=== PATIENT | male | born 1975 | race Caucasian/White ===

== ENCOUNTER 2020-09-24 11:43 | Inpatient (IN) | payer BC ==
[2020-09-24] MEDS ORDERED: Senokot S 8.6-50 MG TAB PO PRN (13:30)
[2020-09-24 14:00] VITALS: BMI 86.5
[2020-09-24] MEDS: Heparin 5,000 UNITS/ML VIAL SC SCH ×2 (14:34→21:43)
--- NOTE | 2020-09-24 16:10 | HP ---
PRIMARY CARE PHYSICIAN: Dr. Bernal and Sommer Davalos NP CHIEF COMPLAINT: Lower leg edema, shortness of breath. HISTORY OF PRESENT ILLNESS: Mr. Don is a 44-year-old male, who went to the emergency room over in [place] today for some dyspnea on exertion with bilateral leg swelling. He reports that he has had a little dyspnea on exertion for the last couple of days. Denies any cough, but does report that he woke up this morning with the bilateral leg edema that was significant enough that it was concerning to him, so he came to the emergency room. He reports that within the last of couple weeks, he went to the dentist for some dental work and they refused to do the dental work because his blood pressure was so high. He went to a new PCP who changed up his medications, added lisinopril, Bystolic, and clonidine and took him off his losartan. He reports he has a followup appointment with his PCP this week to discuss the lab work that they did in [place], but we do not have in our system here. His blood pressure in the emergency room when he first arrived in [place] was 177/115, pulse was 79, respiratory rate was 26, but he had an O2 saturation at 98 on room air. His EKG over there was normal sinus rhythm, beats per minute 78, conduction normal, has some ST depression in leads I. He did have some left atrial enlargement. Chest x-ray showed no focal pulmonary infiltrates and the heart is upper normal size. Labs; BUN is 22, creatinine is 1.48, estimated GFR is 52, AST is 100, ALT is 301, alkaline phosphatase is 133. Troponin in the indeterminate range of 0.036. BNP is 1345.8. He was sent over to [facility] for admission for possible CHF. REVIEW OF SYSTEMS: The patient reports some shortness of breath on exertion. Reports lower leg edema, which appeared this morning when he got up. He denied fever, chills, cough, chest pain. All systems reviewed and are negative unless mentioned above or in HPI. PAST MEDICAL HISTORY: Hypertension. SURGICAL HISTORY: He has had back surgery in the past for herniated disk and bilateral hernia repair. SOCIAL HISTORY: He is a social drinker, former marijuana user, and does smoke tobacco. Smokes about a pack a day. ALLERGIES: NONE. CURRENT MEDICATIONS: 1. Bystolic 20 mg p.o. once a day. 2. Lisinopril 20 mg p.o. once a day. 3. Clonidine 0.1 tablet q.6 hours p.r.n. for systolic over 180. PHYSICAL EXAMINATION: VITAL SIGNS: Temp is 98, pulse is 76, respiratory rate is 19, pO2 sats are 95% on room air, blood pressure is 130/64. CONSTITUTIONAL: The patient is alert and oriented to person, place, and time. He is nontoxic appearing. HEENT: Head is atraumatic and normocephalic. Eyes, pupils are equally round and reactive to light. ENT; mouth exam is normal. Mucous membranes are moist. NECK: Normal range of motion. Trachea is midline. RESPIRATORY/CHEST: Breath sounds are clear. Chest expansion is equal. CARDIOVASCULAR: Regular rate and rhythm. Heart sounds are normal. ABDOMEN: Nontender. Bowel sounds are heard. BACK: Normal to inspection. There is no tenderness. EXTREMITIES: Upper extremity; normal range of motion. Motor strength is normal. Radial pulses are present. Lower extremity; normal range of motion. Motor strength is normal. He has pitting edema bilaterally. NEURO: The patient is oriented to person, place, and time. There is no focal motor or sensory deficits. SKIN: Warm, dry, normal in color. PSYCH: He has a normal affect. ASSESSMENT: 1. Dyspnea on exertion with lower leg edema. We will order an echocardiogram, gently diurese. The patient was given 40 of Lasix in the emergency room. We will continue this daily. We will trend troponins. 2. Acute renal injury. Hold nephrotoxic medications and repeat labs in AM 3. History of hypertension. Change his medications to Coreg 6.25 mg p.o. b.i.d. 4. DM Type 2- ACHS accuchecks, sliding scale insulin for coverage; add A1C 5. History of sleep apnea. Order a CPAP for use at night. 6. Repeat lab values in the morning. 7. Deep vein thrombosis and gastrointestinal prophylaxis started. 8 Hospital course dependent on clinical findings. [address] Agustin who agrees with plan Job ID: [id number] [facility]
[2020-09-24 16:25] LABS: Troponin I 0.036 ng/mL (< 0.028)
[2020-09-24] MEDS: Carvedilol 6.25 MG TAB PO SCH (16:50)
[2020-09-24 19:14] LABS: Troponin I 0.034 ng/mL (< 0.028)
[2020-09-24] MEDS: Famotidine 20 MG TAB PO SCH (21:44)
[2020-09-25] MEDS ORDERED: Amlodipine 5 MG TAB PO PRN (04:12)
[2020-09-25] MEDS: Acetaminophen 325 MG TAB PO PRN (04:32)
[2020-09-25] MEDS: Carvedilol 6.25 MG TAB PO SCH ×2 (04:32→16:15)
[2020-09-25 04:46] LABS: #Basophils 0.1 thou/uL (0.0-0.2); #Eosinphils 0.3 thou/uL (0.0-0.7); #Lymphocytes 2.4 thou/uL (1.20-3.40); #Monocytes 0.8 thou/uL (0.11-0.59); #Neutrophils 6.6 thou/uL (1.40-6.50); %Basophils 0.6 % (0.0-1.0); %Eosinophils 2.8 % (0.0-10.0); %Lymphocytes 23.4 % (21.0-51.0); %Monocytes 8.1 % (0.0-10.0); Hemoglobin 12.7 g/dL (14.0-18.0); Mean Corpuscular HGB CONC 32.6 g/dL (32.0-36.0); Mean Corpuscular Hemoglobin 28.3 pg (27.0-31.0); Mean Corpuscular Volume 86.8 fL (78.0-98.0); Mean Platelet Volume 8.3 fL (7.4-10.4); Platelet Count 281 thou/uL (130-400); RBC Distribution Width 14.8 % (11.5-14.5); Red Blood Cell (RBC) Count 4.51 mill/uL (4.70-6.10); White Blood Cell (WBC) Count 10.2 thou/uL (4.8-10.8)
[2020-09-25 04:58] LABS: Hemoglobin A1c 5.8 % (4.0-6.0)
[2020-09-25 05:07] LABS: ALT (SGPT) 215 U/L (8-55); AST (SGOT) 47 U/L (5-34); Albumin 3.5 g/dL (3.5-5.0); Alkaline Phosphatase 117 U/L (40-110); Anion Gap 13 mmol/L (10-20); BUN (Urea Nitrogen) 23 mg/dL (8.9-20.6); Bilirubin, Total 0.8 mg/dL (0.2-1.2); Calc. Creatinine Clearance 131 mL/min (70-130); Calcium 8.9 mg/dL (7.8-10.44); Carbon Dioxide 27 mmol/L (22-29); Cardiac Risk 4.8 (Less than 4.5); Chloride 105 mmol/L (98-107); Cholesterol 152 mg/dl (< 200 Desired); Estimated GFR-MDRD 54; Globulin 2.7 g/dL (2.4-3.5); Glucose 109 mg/dL (70-105); HDL Cholesterol 32 mg/dL (>60 Neg Risk); LDL Cholesterol, Calculated 100 mg/dL; Potassium 3.8 mmol/L (3.5-5.1); Protein, Total 6.2 g/dL (6.0-8.3); Sodium 141 mmol/L (136-145); Triglycerides 100 mg/dL (Less than 150)
[2020-09-25 05:33] LABS: SARS-CoV-2 MS2 Positive; SARS-CoV-2 N Gene Negative; SARS-CoV-2 S Gene Negative; SARS-CoV-2 by NAA Not Detected (NotDetected); SARS-CoV-2 orf1ab Negative
[2020-09-25] MEDS ORDERED: FLU VACC QS2020-21(6MOS UP)/PF 60 MCG/0.5 ML SYRINGE IM ONE (09:00)
[2020-09-25] MEDS: Heparin 5,000 UNITS/ML VIAL SC SCH ×3 (09:26→20:16)
[2020-09-25] MEDS: Furosemide 40 MG/4 ML VIAL SLOW IVP SCH (09:26)
[2020-09-25] MEDS: Aspirin Chewable 81 MG TAB PO SCH (09:26)
[2020-09-25] MEDS: Famotidine 20 MG TAB PO SCH ×2 (09:26→20:15)
--- NOTE | 2020-09-25 12:19 | PDOC.HOSPP ---
- Subjective Encounter Date: 09/25/20 Encounter Time: 09:30 Subjective: Patient is seen for follow-up for possible new onset congestive heart failure and lower extremity edema. Patient states he is feeling well although his legs are still edematous. Currently awaiting cardiology consult. - Objective Vital Signs & Weight: Vital Signs (12 hours) Temp Pulse Resp BP Pulse Ox 09/25/20 11:32 97.6 F 76 16 173/112 H 98 09/25/20 07:36 98.5 F 76 18 160/87 H 95 09/25/20 06:06 98.6 F 75 165/112 H 09/25/20 04:32 99.1 F 09/25/20 04:00 99.1 F 81 18 204/117 H 96 Weight Weight 306 lb I&O: 09/24/20 09/25/20 09/26/20 06:59 06:59 06:59 Intake Total 1300 Output Total 2250 Balance -950 Result Diagrams: 09/25/20 04:31 09/25/20 04:31 Hospitalist ROS - Medication Medications: Active Medications Generic Name Dose Route Start Last Admin Trade Name Freq PRN Reason Stop Dose Admin Acetaminophen 650 mg 09/25/20 04:12 09/25/20 04:32 Acetaminophen 325 Mg Tab PO 650 mg Q6H PRN Administration Fever/Mild Pain 1-3 Aspirin 81 mg 09/25/20 09:00 09/25/20 09:26 Aspirin Chewable 81 Mg Tab PO 81 mg DAILY TREVON Administration Carvedilol 6.25 mg 09/24/20 17:00 09/25/20 04:32 Carvedilol 6.25 Mg Tab PO 6.25 mg BID- TREVON Administration Famotidine 20 mg 09/24/20 21:00 09/25/20 09:26 Famotidine 20 Mg Tab PO 20 mg BID TREVON Administration Furosemide 40 mg 09/25/20 09:00 09/25/20 09:26 Furosemide 40 Mg/4 Ml Vial SLOW IVP 40 mg DAILY TREVON Administration Heparin Sodium (Porcine) 5,000 units 09/24/20 15:00 09/25/20 09:26 Heparin 5,000 Units/Ml Vial SC 5,000 units TID TREVON Administration Sodium Chloride 10 ml 09/24/20 13:30 09/25/20 09:27 Flush - Normal Saline 10 Ml Syringe IVF 10 ml PRN PRN Administration Saline Flush - Exam General Appearance: NAD, awake alert Eye: PERRL, anicteric sclera ENT: normocephalic atraumatic Neck: supple Heart: RRR, no murmur, no gallops, no rubs, normal peripheral pulses Respiratory: CTAB, no wheezes, no rales, no ronchi, normal chest expansion Gastrointestinal: soft, non-tender, non-distended, normal bowel sounds, no palpable masses Extremities: 2+ LE edema Psychiatric: normal affect, normal behavior Hosp A/P (1) Dyspnea on exertion Code(s): R06.00 - DYSPNEA, UNSPECIFIED Status: Acute (2) Lower extremity edema Code(s): R60.0 - LOCALIZED EDEMA Status: Acute (3) TRAMAINE (acute kidney injury) Code(s): N17.9 - ACUTE KIDNEY FAILURE, UNSPECIFIED Status: Acute (4) HTN (hypertension) Code(s): I10 - ESSENTIAL (PRIMARY) HYPERTENSION Status: Chronic - Plan #Dyspnea on exertion with lower leg edema: Possible new congestive heart failure Awaiting echo results, was obtained this a.m. Awaiting cardiology consult Continue diuresis #Acute renal injury Very slight improvement from yesterday Continue avoiding nephrotoxic medications Repeat labs in a.m. #Hypertension Monitor vital signs every 4 hour Monitor on telemetry Blood pressure 160/87 this a.m., awaiting morning medications Patient care discussed with Dr. Agustin
[2020-09-25] MEDS ORDERED: hydrALAZINE 20 MG/ML VIAL SLOW IVP PRN (12:59)
[2020-09-25] MEDS ORDERED: Lisinopril 20 MG TAB PO SCH (13:15)
--- NOTE | 2020-09-25 14:35 | PDOC.EVN ---
Event Note - Event Note Event Note: Patient case was reviewed. Patient was seen and examined. He reports he has been voiding very well. He is breathing much better. He still has persistent edema of his lower extremities. He tells me that he has been fighting blood pressure for about 4 years. He has not seen his primary care provider in a good while. He also has been on sleep apnea treatment for the past year. He feels like it is not working. He is still very symptomatic. His blood pressure continues to run extremely high much of the time. His heart is regular without murmurs. Lungs are clear bilaterally. Extremities have persistent 3+ pitting edema. monitor technician reveals several 3-second pauses between 5 and 7 AM. He has some sinus bradycardia with a heart rate in the 30s and some ventricular escape beats. I had a long discussion regarding concern for heart failure. He has an elevated BNP with dyspnea on exertion and peripheral edema. He does not have significant cardiomegaly on chest x-ray nor did he have significant pulmonary edema. Given his fairly severe obstructive sleep apnea it is concerning that this is not being adequately treated resulting in some pulmonary hypertension or right heart failure. He is responding well to diuretics and symptomatically improving. Trying to address his blood pressure with the Coreg. May need to be judicious in that given the episodes of bradycardia and pauses. Will defer that to cardiology. Also adding back his SILVIA inhibitor. His renal function is stable with a GFR in the low 50s. Suspect that is chronic from longstanding poorly treated hypertension. This point he likely needs it for blood pressure control and afterload reduction. I believe it is safe with his current GFR. I have also added some IV hydralazine as needed for significantly elevated blood pressures. Echo results and cardiology consult pending. Patient was strongly encouraged to follow-up as an outpatient with his PCP in order to address the sleep apnea situation more fully and successfully.
[2020-09-25] MEDS: hydrALAZINE 25 MG TAB PO SCH (20:15)
--- NOTE | 2020-09-25 22:51 | CON ---
DATE OF CONSULTATION: HISTORY OF PRESENT ILLNESS: Jordan Don is a 44-year-old white male with previous history of hypertension. He has began to notice leg swelling as well as exertional shortness of breath and also exertional chest pressure. This would resolve in less than 1 minute with rest. He was previously on losartan, but saw a new primary care doctor, who placed him on high dose Bystolic 20 mg, lisinopril, and clonidine. With these symptoms, he went to the emergency room in [place] and then is transferred here for further evaluation. He states that since diuresis, his breathing has improved. PAST MEDICAL HISTORY: Hypertension. He denies history of diabetes or hypercholesterolemia. He does have obstructive sleep apnea and uses CPAP at home. OPERATIONS: Back surgery for herniated disk and bilateral hernia repair. SOCIAL HISTORY: He smokes 1 pack per day. He occasionally drinks. FAMILY HISTORY: Negative for coronary artery disease. MEDICATIONS: 1. Bystolic 20 mg daily. 2. Clonidine 0.1 mg q.6 hours p.r.n. 3. Lisinopril 20 mg daily. 4. Aspirin 81 daily. ALLERGIES: PENICILLIN. REVIEW OF SYSTEMS: 10-point review of systems is otherwise unremarkable. PHYSICAL EXAMINATION: VITAL SIGNS: Blood pressure 136/108, pulse of 76. HEENT: PERRL. NECK: Supple. CHEST: Clear. CARDIAC: S1 and S2 normal without any S3, S4, or murmurs. Carotid upstrokes normal without bruits. ABDOMEN: Normal bowel sounds without tenderness or organomegaly. EXTREMITIES: Revealed no clubbing or cyanosis. There is 2+ pretibial edema. NEUROLOGIC: Grossly intact. SKIN: Warm and dry. LABORATORY DATA: EKG revealed normal sinus rhythm with left atrial enlargement, T-wave inversion in aVL and lead I. Echocardiogram revealed mild left ventricular enlargement, moderate concentric left ventricular hypertrophy, moderate left ventricular dysfunction with ejection fraction of 30% to 35%, mild left atrial enlargement, moderate mitral regurgitation, mild tricuspid regurgitation, and moderate pulmonic insufficiency. Chest x-ray revealed no acute findings. Hemoglobin 12.7, hematocrit 39.1, white count 10,200, platelets 281,000. Sodium 141, potassium 3.8, chloride 105, carbon dioxide 27, BUN 23, creatinine 1.44, glucose 109. Hemoglobin A1c 5.8. AST 47, ALT 215, troponin I up to 0.036. Cholesterol 152, triglycerides 100, HDL 32, LDL 100. TSH is normal. CK-MB 3.4. BNP 1345.8. IMPRESSION: 1. 3-second pause, probably related to being on high dose Bystolic as well as receiving a dose of carvedilol last night and not using CPAP. 2. Moderate cardiomyopathy with ejection fraction of 30% to 35%. 3. Left ventricular hypertrophy. 4. Exertional chest pressure and very mildly elevated troponin I. 5. Hypertension, poorly controlled. 6. LDL of 100. 7. Smoker. 8. Chronic kidney disease. 9. Elevated liver function tests, probably due to hepatic congestion. PLAN: The situation was discussed with the patient and his . He will continue to be diuresed. His liver function and renal function will continue to be monitored closely. With his renal insufficiency, lisinopril will be discontinued, also in the hopes of eventually transitioning to Entresto. CPAP will be arranged so that we can reassess his heart rate during the night with CPAP on. With his left ventricular dysfunction and exertional chest pressure, consideration should be given to cardiac catheterization once his renal function is improved and his volume status is better. Risks of this were discussed with the patient and his , including , myocardial infarction, dye reaction, vascular injury, CVA, transfusion, limb loss, renal loss, etc. Also risk of intervention with PTCA and stent placement was discussed including , myocardial infarction, emergent CABG, restenosis, stent thrombosis, vessel perforation, etc. He understands. He is somewhat hesitant to remain in the hospital with the evaluations that need to be done with his cardiac, liver, and renal problems. Job ID: [id number] [facility] HOSPITALFerny
[2020-09-26 04:59] LABS: #Basophils 0.1 thou/uL (0.0-0.2); #Eosinphils 0.2 thou/uL (0.0-0.7); #Lymphocytes 2.2 thou/uL (1.20-3.40); #Monocytes 0.8 thou/uL (0.11-0.59); #Neutrophils 6.3 thou/uL (1.40-6.50); %Eosinophils 1.6 % (0.0-10.0); %Lymphocytes 23.6 % (21.0-51.0); %Monocytes 8.1 % (0.0-10.0); %Neutrophils 65.7 % (42.0-75.0); Hemoglobin 12.2 g/dL (14.0-18.0); Mean Corpuscular Volume 87.1 fL (78.0-98.0); Mean Platelet Volume 8.5 fL (7.4-10.4); Platelet Count 291 thou/uL (130-400); RBC Distribution Width 14.6 % (11.5-14.5); White Blood Cell (WBC) Count 9.5 thou/uL (4.8-10.8)
[2020-09-26 05:25] LABS: ALT (SGPT) 147 U/L (8-55); AST (SGOT) 26 U/L (5-34); Albumin 3.4 g/dL (3.5-5.0); Alkaline Phosphatase 113 U/L (40-110); Anion Gap 11 mmol/L (10-20); BUN (Urea Nitrogen) 24 mg/dL (8.9-20.6); Bilirubin, Total 0.5 mg/dL (0.2-1.2); Calc. Creatinine Clearance 122 mL/min (70-130); Calcium 9.2 mg/dL (7.8-10.44); Carbon Dioxide 30 mmol/L (22-29); Chloride 105 mmol/L (98-107); Estimated GFR-MDRD 52; Globulin 2.8 g/dL (2.4-3.5); Glucose 109 mg/dL (70-105); Protein, Total 6.2 g/dL (6.0-8.3); Sodium 142 mmol/L (136-145)
[2020-09-26] MEDS: Carvedilol 6.25 MG TAB PO SCH ×2 (08:44→16:45)
[2020-09-26] MEDS: Famotidine 20 MG TAB PO SCH ×2 (08:44→21:12)
[2020-09-26] MEDS: hydrALAZINE 25 MG TAB PO SCH ×3 (08:45→21:12)
[2020-09-26] MEDS: Aspirin Chewable 81 MG TAB PO SCH (08:46)
[2020-09-26] MEDS: Heparin 5,000 UNITS/ML VIAL SC SCH ×3 (08:46→21:12)
[2020-09-26] MEDS: Furosemide 40 MG/4 ML VIAL SLOW IVP SCH (08:46)
[2020-09-26] MEDS ORDERED: Lisinopril 20 MG TAB PO SCH (09:00)
[2020-09-26] MEDS ORDERED: Carvedilol 6.25 MG TAB PO SCH (09:15)
[2020-09-26] MEDS ORDERED: Communication Order-Pharmacy FS SCH (09:30)
[2020-09-26] MEDS ORDERED: Acetylcysteine 20% 200 MG/ML 30 ML VIAL PO SCH (13:00)
[2020-09-26] MEDS ORDERED: Furosemide 40 MG/4 ML VIAL SLOW IVP SCH (14:00)
--- NOTE | 2020-09-26 17:06 | CON ---
DATE OF CONSULTATION: 09/26/2020 SERVICE: Nephrology. REASON FOR CONSULTATION: Renal insufficiency and need for contrast study. REQUESTING PHYSICIAN: Dr. Lincoln Keith. CHIEF COMPLAINT: Worsening shortness of breath and edema. HISTORY OF PRESENT ILLNESS: A 44-year-old male patient with known history of hypertension, admitted due to worsening shortness of breath and lower extremity edema. The patient with known history of hypertension, reportedly noticed that his blood pressures have been out of control, hence medications were recently adjusted by primary care physician. The patient reported that he used to take clonidine p.r.n., but of late, has been taking up to five times in a day. He reported acute bilateral leg edema associated with shortness of breath overnight, hence presentation to [place], from where he was transferred over here. The patient was started on diuretics and antihypertensives with improvement of both blood pressure and shortness of breath as well as leg swelling. Cardiology has seen the patient, and subsequent echocardiogram showed reduced EF of 30% to 35%, hence need for cardiac catheterization. Nephrology consult was requested for recommendation in view of need for cardiac catheterization in a patient with CKD. There is no history of hematuria, nausea, vomiting, hematemesis, dysuria, or hematochezia. The patient reports that shortness of breath has improved significantly and is currently on room air. He denied prior history of chronic kidney disease or use of NSAIDs. PAST MEDICAL HISTORY: 1. Hypertension. 2. Obesity. 3. Obstructive sleep apnea, on CPAP. PAST SURGICAL HISTORY: Back surgery for herniated disk. FAMILY HISTORY: No history of coronary artery disease or stroke in family members. SOCIAL HISTORY: The patient is a current everyday smoker. Smokes about one pack per day. He occasionally drinks alcohol. He lives with his at home. ALLERGIES: PENICILLIN. PRIOR TO HOSPITAL MEDICATIONS: 1. Bystolic 20 mg daily. 2. Lisinopril 20 mg daily. 3. Aspirin 81 mg p.o. daily. 4. Clonidine 0.1 mg q.6 hours p.r.n. for elevated blood pressure. CURRENT HOSPITAL MEDICATIONS: As follows; 1. Aspirin 81 mg p.o. daily. 2. Carvedilol 6.25 mg p.o. b.i.d. 3. Pepcid 20 mg p.o. b.i.d. 4. Lasix 40 mg IV at 6 a.m. bid. 5. Heparin 5000 units subcutaneously t.i.d. 6. Hydralazine 75 mg p.o. b.i.d. REVIEW OF SYSTEMS: A 12-point review of systems performed was negative other than pertinent positives and negatives included in the history of present illness. PHYSICAL EXAMINATION: VITAL SIGNS: Temperature 98.4, pulse 78, respiratory rate 17, SpO2 of 96% on room air, and blood pressure is 142/76. Intake and output in the last 24 hours showed total intake of 100 with output of 800: This is grossly inconclusive. GENERAL: Obese, heavily-built male, in no obvious distress. Afebrile. Anicteric. Acyanotic. HEENT: Normocephalic, atraumatic. Oral mucosa is moist. NECK: Supple with no obvious JVD. CARDIOVASCULAR: Regular rhythm and rate with normal heart sounds 1 and 2. RESPIRATORY: Good air entry bilaterally with few bibasilar crackles. No obvious rhonchi or use of accessory muscles appreciated. GI: Obese, soft, nontender, nondistended with normal bowel sounds. EXTREMITIES: [id number] bilateral leg edema noted. No erythema appreciated. MAGENTO DEVELOPER: Conscious, alert, oriented x3 with appropriate mental status. Cranial nerves 2 through 12 are grossly intact. The patient moves all extremities. DIAGNOSTIC DATA: CBC today showed WBC count of 9.5, hemoglobin of 12.2, MCV of 87.1, and platelets of 291. Chemistry today showed sodium 142, potassium 4.0, chloride 105, CO2 of 30, BUN 24, creatinine 1.49, glucose 109, calcium 9.2, total bilirubin 0.5, AST 26, ALT 147, alkaline phosphatase 113, total protein 6.2, albumin 3.4. Of note, on presentation, BUN was 22, and creatinine was 1.48. Echocardiogram performed on September 25 showed moderately increased left ventricular size with moderate concentric left ventricular hypertrophy. Left ventricular systolic function is moderately decreased with EF of 30% to 35%. Also noted were mild dilatation of left atrium as well as moderate mitral regurgitation, mild tricuspid regurgitation, and moderate pulmonic regurgitation. ASSESSMENT: 1. Renal insufficiency: It most likely is chronic kidney disease, stage 3. Acute reversible component cannot be ruled out. The patient has known history of longstanding poorly controlled hypertension and has been on RAAS chioma. He admitted to noncompliance with medication. 2. Poorly controlled hypertension. 3. Hypertensive heart disease. 4. Obstructive sleep apnea, on CPAP. 5. Acute on chronic systolic and diastolic heart failure with EF of 30% to 35%. PLAN: In view of planned cardiac catheterization tomorrow, we will hold diuretics given that the patient is not in respiratory distress, has clear lungs and is on room air. We will also start the patient on Mucomyst. I agree with commencement of IV fluid tomorrow morning prior to cardiac catheterization. We will avoid nephrotoxic agents at this point, including RAAS blockers, and diuretics. Many thanks for involving us in the care of this patient. We will follow along with you. Further treatment to follow depending on hospital course and review of other diagnostic tests. Job ID: [id number] [facility]
--- NOTE | 2020-09-26 17:38 | PDOC.HOSPP ---
- Subjective Encounter Date: 09/26/20 Encounter Time: 10:30 Subjective: Patient seen for follow-up regarding congestive heart failure exacerbation. Reports feeling better. Denies chest pain. - Objective Vital Signs & Weight: Vital Signs (12 hours) Temp Pulse Resp BP BP Pulse Ox 09/26/20 16:43 83 174/103 H 09/26/20 12:15 98.4 F 78 17 142/76 H 96 09/26/20 10:43 131/63 09/26/20 08:45 81 179/113 H 09/26/20 07:15 98.6 F 83 16 140/101 H 98 09/26/20 06:35 89 211/117 H Weight Weight 294 lb I&O: 09/25/20 09/26/20 09/27/20 06:59 06:59 06:59 Intake Total 1300 100 Output Total 2250 800 Balance -950 -700 Result Diagrams: 09/26/20 04:20 09/26/20 04:20 Additional Labs: Labs and MAR reviewed by me EKG Reviewed by me: Yes (Telemetry shows normal sinus rhythm) Hospitalist ROS - Review of Systems Constitutional: denies: fever, chills, sweats, weakness, malaise Respiratory: reports: SOB with excertion. denies: cough, dry, shortness of breath, hemoptysis, pleuritic pain, sputum, wheezing Cardiovascular: reports: orthopnea, edema. denies: chest pain, palpitations, paroxysmal noc. dyspnea, light headedness Gastrointestinal: denies: nausea, vomiting, abdominal pain, diarrhea, constipation, melena, hematochezia Genitourinary: denies: dysuria, frequency, incontinence, hematuria, retention Skin: denies: rash, lesions, tiffany, bruising - Medication Medications: Active Medications Generic Name Dose Route Start Last Admin Trade Name Freq PRN Reason Stop Dose Admin Acetaminophen 650 mg 09/25/20 04:12 09/25/20 04:32 Acetaminophen 325 Mg Tab PO 650 mg Q6H PRN Administration Fever/Mild Pain 1-3 Amlodipine Besylate 2.5 mg 09/25/20 04:12 09/26/20 05:05 Amlodipine 5 Mg Tab PO 10/25/20 04:13 2.5 mg ONE PRN Administration SBP Greater Than 180 Aspirin 81 mg 09/25/20 09:00 09/26/20 08:46 Aspirin Chewable 81 Mg Tab PO 81 mg DAILY TREVON Administration Carvedilol 12.5 mg 09/26/20 17:00 09/26/20 16:45 Carvedilol 6.25 Mg Tab PO 12.5 mg BID-WM TREVON Administration Famotidine 20 mg 09/24/20 21:00 09/26/20 08:44 Famotidine 20 Mg Tab PO 20 mg BID TREVON Administration Heparin Sodium (Porcine) 5,000 units 09/24/20 15:00 09/26/20 16:44 Heparin 5,000 Units/Ml Vial SC 5,000 units TID TREVON Administration Hydralazine HCl 10 mg 09/25/20 12:59 09/26/20 07:16 Hydralazine 20 Mg/Ml Vial SLOW IVP 10 mg Q4H PRN Administration SBP > 185, DBP > 100 Hydralazine HCl 100 mg 09/26/20 15:00 09/26/20 16:43 Hydralazine 25 Mg Tab PO 100 mg TID TREVON Administration Sodium Chloride 10 ml 09/24/20 13:30 09/26/20 08:47 Flush - Normal Saline 10 Ml Syringe IVF 10 ml PRN PRN Administration Saline Flush - Exam General - other findings: Obese Eye: anicteric sclera ENT: no oropharyngeal lesions, moist mucosa Neck: supple, symmetric, no thyromegaly, no lymphadenopathy Heart: RRR, no gallops, no rubs, normal peripheral pulses Respiratory: no rales, no ronchi, normal chest expansion Respiratory - other findings: Bibasilar crackles Gastrointestinal: soft, non-tender, non-distended, normal bowel sounds Extremities: 1+ LE edema Skin: no rashes Neurological: cranial nerve grossly intact Psychiatric: normal affect, normal behavior, oriented to person, oriented to place Hosp A/P (1) Acute on chronic systolic congestive heart failure, NYHA class 3 Code(s): I50.23 - ACUTE ON CHRONIC SYSTOLIC (CONGESTIVE) HEART FAILURE Status: Acute (2) TRAMAINE (acute kidney injury) Code(s): N17.9 - ACUTE KIDNEY FAILURE, UNSPECIFIED Status: Acute (3) Elevated troponin Code(s): R77.8 - OTHER SPECIFIED ABNORMALITIES OF PLASMA PROTEINS Status: Acute (4) HTN (hypertension) Code(s): I10 - ESSENTIAL (PRIMARY) HYPERTENSION Status: Chronic - Plan Patient improved with diuresis. Appreciate cardiology service input. Continue Coreg 6.25 mg 2 times a day. Continue hydralazine 100 mg 3 times a day. Nephrology service consulted for optimization of renal function. Patient to have cardiac catheterization tomorrow.
[2020-09-26 17:50] LABS: Bacteria/HPF None Seen HPF (None Seen); Bilirubin Negative (Negative); Blood, Urine Negative (Negative); Clarity Clear (Clear); Glucose, Urine (Dipstick) Normal (Negative); Ketone, Urine Negative (Negative); Leukocyte Negative Leu/uL (Negative); Nitrite Negative (Negative); Protein, Urine (Dipstick) Negative (Neg-Trace); RBC/HPF 0-3 HPF (0-3); Specific Gravity, Urine 1.013 (1.002-1.036); Squamous Epithelial None Seen HPF (0-3); Urobilinogen Normal mg/dL (Less than 2); WBC/HPF 0-3 HPF (0-3)
[2020-09-26 18:25] LABS: Creatinine, Urine 58.18 mg/dL (63-166); Protein, Urine Random Quant Less than 10 mg/dL (1-14); Urea Nitrogen, Random Urine 451 mg/dl
[2020-09-26] MEDS: Acetylcysteine 20% 200 MG/ML 30 ML VIAL PO SCH (21:10)
[2020-09-27 04:29] LABS: #Basophils 0.1 thou/uL (0.0-0.2); #Eosinphils 0.2 thou/uL (0.0-0.7); #Lymphocytes 2.4 thou/uL (1.20-3.40); #Neutrophils 6.6 thou/uL (1.40-6.50); %Basophils 0.8 % (0.0-1.0); %Monocytes 9.5 % (0.0-10.0); %Neutrophils 64.7 % (42.0-75.0); Hemoglobin 12.8 g/dL (14.0-18.0); Mean Corpuscular HGB CONC 32.9 g/dL (32.0-36.0); Mean Corpuscular Hemoglobin 28.4 pg (27.0-31.0); Mean Corpuscular Volume 86.3 fL (78.0-98.0); Mean Platelet Volume 8.1 fL (7.4-10.4); Platelet Count 305 thou/uL (130-400); RBC Distribution Width 14.5 % (11.5-14.5); White Blood Cell (WBC) Count 10.2 thou/uL (4.8-10.8)
[2020-09-27 04:50] LABS: ALT (SGPT) 106 U/L (8-55); AST (SGOT) 21 U/L (5-34); Albumin 3.5 g/dL (3.5-5.0); Alkaline Phosphatase 105 U/L (40-110); Anion Gap 15 mmol/L (10-20); BUN (Urea Nitrogen) 20 mg/dL (8.9-20.6); Bilirubin, Total 0.7 mg/dL (0.2-1.2); Calc. Creatinine Clearance 140 mL/min (70-130); Carbon Dioxide 25 mmol/L (22-29); Chloride 104 mmol/L (98-107); Estimated GFR-MDRD 61; Glucose 112 mg/dL (70-105); Potassium 3.7 mmol/L (3.5-5.1); Protein, Total 6.5 g/dL (6.0-8.3); Sodium 140 mmol/L (136-145)
[2020-09-27] MEDS ORDERED: Sodium Chloride 0.9% 1,000 ML IV SCH ×2 (06:00→09:04)
[2020-09-27] MEDS: Famotidine 20 MG TAB PO SCH ×2 (06:14→21:17)
[2020-09-27] MEDS: Aspirin Chewable 81 MG TAB PO SCH (06:14)
[2020-09-27] MEDS: hydrALAZINE 25 MG TAB PO SCH ×4 (06:14→21:17)
[2020-09-27] MEDS: Carvedilol 6.25 MG TAB PO SCH ×2 (06:15→17:21)
[2020-09-27] MEDS ORDERED: Amlodipine 5 MG TAB PO SCH (06:30)
[2020-09-27] MEDS ORDERED: Heparin 10,000 UNITS/ 10 ML VIAL ONE (06:38)
[2020-09-27] MEDS: Acetylcysteine 20% 200 MG/ML 30 ML VIAL PO SCH ×2 (07:15→21:16)
[2020-09-27] MEDS ORDERED: Fentanyl 100 MCG/2 ML VIAL ONE (07:50)
[2020-09-27] MEDS ORDERED: Midazolam HCl 2 mg/2 ml Vial ONE (07:50)
[2020-09-27] MEDS ORDERED: Nitroglycerin 100MG/250ML BOT 250 ML ONE (08:17)
[2020-09-27] MEDS ORDERED: TICAGRELOR 90 MG TABLET ONE (08:19)
[2020-09-27] MEDS ORDERED: Morphine 2 MG/ML VIAL SLOW IVP PRN (09:01)
[2020-09-27] MEDS ORDERED: Morphine 4 MG/ML VIAL SLOW IVP PRN (09:01)
[2020-09-27] MEDS ORDERED: Furosemide 40 MG/4 ML VIAL SLOW IVP SCH (09:30)
[2020-09-27] MEDS ORDERED: Furosemide 40 MG/4 ML VIAL ONE (10:11)
[2020-09-27] MEDS ORDERED: Iopamidol 370 76% 50 ML VIAL FS ONE (12:34)
[2020-09-27] MEDS ORDERED: Iopamidol 370 76% 100 ML VIAL ONE (12:34)
[2020-09-27] MEDS: Sacubitril 49 MG/Valsartan 51 MG TABLET PO SCH ×2 (14:23→21:17)
[2020-09-27] MEDS: Acetaminophen 325 MG TAB PO PRN (14:50)
--- NOTE | 2020-09-27 16:36 | PDOC.NEPPN ---
- Subjective Encounter Date: 09/27/20 Subjective: Seen in follow up for prevention contrast induced nephropathy. Patient with CKD with possible TRAMAINE s/p Cardiac catheterization with stent placement to mid RCA. Feeling better. No SOB. Complaining of back pain. - Objective Vital Signs & Weight: Vital Signs (12 hours) Temp Pulse Resp BP BP Pulse Ox 09/27/20 14:33 87 177/106 H 09/27/20 07:10 98.2 F 82 18 136/76 96 09/27/20 06:14 86 Weight Weight 295 lb I&O: 09/26/20 09/27/20 09/28/20 06:59 06:59 06:59 Intake Total 100 1275 650 Output Total 488 1886 3186 Balance -018 -2594 -9695 Result Diagrams: 09/27/20 04:16 09/27/20 04:16 Nephrology ROS - Medication Medications: Active Medications Generic Name Dose Route Start Last Admin Trade Name Freq PRN Reason Stop Dose Admin Acetaminophen 650 mg 09/25/20 04:12 09/27/20 14:50 Acetaminophen 325 Mg Tab PO 650 mg Q6H PRN Administration Fever/Mild Pain 1-3 Acetylcysteine 600 mg 09/26/20 21:00 09/27/20 07:15 Acetylcysteine 20% 200 Mg/Ml 30 Ml Vial PO 09/27/20 21:01 600 mg BID TREVON Administration Amlodipine Besylate 2.5 mg 09/25/20 04:12 09/26/20 05:05 Amlodipine 5 Mg Tab PO 10/25/20 04:13 2.5 mg ONE PRN Administration SBP Greater Than 180 Aspirin 81 mg 09/25/20 09:00 09/27/20 06:14 Aspirin Chewable 81 Mg Tab PO 81 mg DAILY TREVON Administration Carvedilol 12.5 mg 09/26/20 17:00 09/27/20 06:15 Carvedilol 6.25 Mg Tab PO 12.5 mg BID-WM TREVON Administration Famotidine 20 mg 09/24/20 21:00 09/27/20 06:14 Famotidine 20 Mg Tab PO 20 mg BID TREVON Administration Hydralazine HCl 10 mg 09/25/20 12:59 09/26/20 07:16 Hydralazine 20 Mg/Ml Vial SLOW IVP 10 mg Q4H PRN Administration SBP > 185, DBP > 100 Hydralazine HCl 25 mg 09/27/20 09:00 09/27/20 14:33 Hydralazine 25 Mg Tab PO 25 mg TID TREVON Administration Sacubitril/Valsartan 1 tab 09/27/20 09:00 09/27/20 14:23 Sacubitril 49 Mg/Valsartan 51 Mg Tablet PO Not Given BID TREVON Sodium Chloride 10 ml 09/24/20 13:30 09/26/20 08:47 Flush - Normal Saline 10 Ml Syringe IVF 10 ml PRN PRN Administration Saline Flush - Exam General Appearance: awake alert Eye: anicteric sclera ENT: normocephalic atraumatic, moist mucosa Neck: supple Respiratory: no wheezes, no ronchi, normal chest expansion, no tachypnea Cardiovascular: RRR Gastrointestinal: soft, non-tender, non-distended, normal bowel sounds Extremities: no cyanosis, 1+ LE edema Neurological: CN's grossly intact, no focal deficits PSYCH: A&O x 3 Nephrology Results - Labs Result Diagrams: 09/27/20 04:16 09/27/20 04:16 Lab results: WBC 10.2 thou/uL (4.8-10.8) 09/27/20 04:16 Hgb 12.8 g/dL (14.0-18.0) L 09/27/20 04:16 Hct 38.8 % (42.0-52.0) L 09/27/20 04:16 MCV 86.3 fL (78.0-98.0) 09/27/20 04:16 Plt Count 305 thou/uL (130-400) 09/27/20 04:16 Neutrophils % 64.7 % (42.0-75.0) 09/27/20 04:16 Sodium 140 mmol/L (136-145) 09/27/20 04:16 Potassium 3.7 mmol/L (3.5-5.1) 09/27/20 04:16 Chloride 104 mmol/L (98-107) 09/27/20 04:16 Carbon Dioxide 25 mmol/L (22-29) 09/27/20 04:16 BUN 20 mg/dL (8.9-20.6) 09/27/20 04:16 Creatinine 1.30 mg/dL (0.7-1.3) 09/27/20 04:16 Glucose 112 mg/dL (70-105) H 09/27/20 04:16 Calcium 9.0 mg/dL (7.8-10.44) 09/27/20 04:16 Total Bilirubin 0.7 mg/dL (0.2-1.2) 09/27/20 04:16 AST 21 U/L (5-34) 09/27/20 04:16 ALT 106 U/L (8-55) H 09/27/20 04:16 Alkaline Phosphatase 105 U/L (40-110) 09/27/20 04:16 Troponin I 0.034 ng/mL (< 0.028) H 09/24/20 18:26 B-Natriuretic Peptide 907.6 pg/mL (0-100) H 09/27/20 04:16 Serum Total Protein 6.5 g/dL (6.0-8.3) 09/27/20 04:16 Albumin 3.5 g/dL (3.5-5.0) 09/27/20 04:16 Urine Ketones Negative mg/dL (Negative) 09/26/20 16:30 Urine Blood Negative (Negative) 09/26/20 16:30 Urine Nitrite Negative (Negative) 09/26/20 16:30 Ur Leukocyte Esterase Negative Maria Del Rosario/uL (Negative) 09/26/20 16:30 Urine RBC 0-3 HPF (0-3) 09/26/20 16:30 Urine WBC 0-3 HPF (0-3) 09/26/20 16:30 Ur Squamous Epith Cells None Seen HPF (0-3) 09/26/20 16:30 Urine Bacteria None Seen HPF (None Seen) 09/26/20 16:30 Sodium 140 mmol/L (136-145) 09/27/20 04:16 Potassium 3.7 mmol/L (3.5-5.1) 09/27/20 04:16 Chloride 104 mmol/L (98-107) 09/27/20 04:16 Carbon Dioxide 25 mmol/L (22-29) 09/27/20 04:16 Anion Gap 15 mmol/L (10-20) 09/27/20 04:16 BUN 20 mg/dL (8.9-20.6) 09/27/20 04:16 Creatinine 1.30 mg/dL (0.7-1.3) 09/27/20 04:16 Glucose 112 mg/dL (70-105) H 09/27/20 04:16 Calcium 9.0 mg/dL (7.8-10.44) 09/27/20 04:16 Albumin 3.5 g/dL (3.5-5.0) 09/27/20 04:16 Nephrology AP PN - Plan CKD 3 with possible TRAMAINE. Baseline creat is unknown. Creat is down from admission level of 1.48 to 1.30. Currently off lasix, RAAS chioma. Recieved IVF pre cardiac angio. Also recieved mucomyst for contrast induced nephropathy prevention. Will repeat renal Function in the morning. Continue to hold lasix. Complete mucomyst therapy HTN: Control is suboptimal. Start amlodipine 5 mg. Monitor BP and increase dose to get adequate BP control. TONO on CPAP Acute systolic and diastolic heart failure CAD s/p FRANKO to RCA Ischemic cardiomyopathy.
--- NOTE | 2020-09-27 17:01 | PDOC.HOSPP ---
- Subjective Encounter Date: 09/27/20 Encounter Time: 16:59 Subjective: Patient seen for follow-up regarding congestive heart failure exacerbation. He had PCI with drug-eluting stent earlier today. He denies chest pain. He complains of back pain. - Objective Vital Signs & Weight: Vital Signs (12 hours) Temp Pulse Resp BP BP Pulse Ox 09/27/20 15:45 98.7 F 92 16 161/79 H 97 09/27/20 14:33 87 177/106 H 09/27/20 07:10 98.2 F 82 18 136/76 96 09/27/20 06:14 86 Weight Weight 295 lb I&O: 09/26/20 09/27/20 09/28/20 06:59 06:59 06:59 Intake Total 100 1275 650 Output Total 800 4028 4093 Balance -260 -6267 -4390 Result Diagrams: 09/27/20 04:16 09/27/20 04:16 Additional Labs: I reviewed patient's labs and MAR EKG Reviewed by me: Yes (Normal sinus rhythm on telemetry) Hospitalist ROS - Review of Systems Respiratory: denies: cough, shortness of breath, SOB with excertion, pleuritic pain, wheezing Cardiovascular: denies: chest pain, palpitations, orthopnea, paroxysmal noc. dyspnea, edema, light headedness Musculoskeletal: reports: back pain. denies: neck pain, shoulder pain, arm pain, hand pain, leg pain, foot pain - Medication Medications: Active Medications Generic Name Dose Route Start Last Admin Trade Name Freq PRN Reason Stop Dose Admin Acetaminophen 650 mg 09/25/20 04:12 09/27/20 14:50 Acetaminophen 325 Mg Tab PO 650 mg Q6H PRN Administration Fever/Mild Pain 1-3 Acetylcysteine 600 mg 09/26/20 21:00 09/27/20 07:15 Acetylcysteine 20% 200 Mg/Ml 30 Ml Vial PO 09/27/20 21:01 600 mg BID TREVON Administration Amlodipine Besylate 2.5 mg 09/25/20 04:12 09/26/20 05:05 Amlodipine 5 Mg Tab PO 10/25/20 04:13 2.5 mg ONE PRN Administration SBP Greater Than 180 Aspirin 81 mg 09/25/20 09:00 09/27/20 06:14 Aspirin Chewable 81 Mg Tab PO 81 mg DAILY TREVON Administration Carvedilol 12.5 mg 09/26/20 17:00 09/27/20 06:15 Carvedilol 6.25 Mg Tab PO 12.5 mg BID-WM TREVON Administration Famotidine 20 mg 09/24/20 21:00 09/27/20 06:14 Famotidine 20 Mg Tab PO 20 mg BID TREVON Administration Hydralazine HCl 10 mg 09/25/20 12:59 09/26/20 07:16 Hydralazine 20 Mg/Ml Vial SLOW IVP 10 mg Q4H PRN Administration SBP > 185, DBP > 100 Hydralazine HCl 25 mg 09/27/20 09:00 09/27/20 14:33 Hydralazine 25 Mg Tab PO 25 mg TID TREVON Administration Sacubitril/Valsartan 1 tab 09/27/20 09:00 09/27/20 14:23 Sacubitril 49 Mg/Valsartan 51 Mg Tablet PO Not Given BID TREVON Sodium Chloride 10 ml 09/24/20 13:30 09/26/20 08:47 Flush - Normal Saline 10 Ml Syringe IVF 10 ml PRN PRN Administration Saline Flush - Exam General - other findings: Obese Eye: anicteric sclera ENT: no oropharyngeal lesions Neck: supple Heart: RRR Respiratory: CTAB Gastrointestinal: soft, non-tender Skin: no rashes Musculoskeletal: no muscle wasting Psychiatric: normal affect, normal behavior Hosp A/P (1) Acute on chronic systolic congestive heart failure, NYHA class 3 Code(s): I50.23 - ACUTE ON CHRONIC SYSTOLIC (CONGESTIVE) HEART FAILURE Status: Acute (2) TRAMAINE (acute kidney injury) Code(s): N17.9 - ACUTE KIDNEY FAILURE, UNSPECIFIED Status: Acute (3) Elevated troponin Code(s): R77.8 - OTHER SPECIFIED ABNORMALITIES OF PLASMA PROTEINS Status: Acute (4) HTN (hypertension) Code(s): I10 - ESSENTIAL (PRIMARY) HYPERTENSION Status: Chronic (5) Coronary artery disease Code(s): I25.10 - ATHSCL HEART DISEASE OF [place] CORONARY ARTERY W/O ANG PCTRS Status: Chronic (6) Ischemic cardiomyopathy Code(s): I25.5 - ISCHEMIC CARDIOMYOPATHY Status: Chronic - Plan Patient is status post PCI with drug-eluting stent to RCA. Continue aspirin and ticagrelor. Continue statin. Patient improved with diuresis. Transition to oral diuretic. Continue Coreg 12.5 mg 2 times a day. Continue hydralazine 25 mg 3 times a day. Appreciate nephrology service input. Patient will need LifeVest for ischemic cardiomyopathy. Likely home 24 to 48 hours.
[2020-09-27] MEDS ORDERED: Atorvastatin Calcium 40 MG TAB PO SCH (21:00)
[2020-09-27] MEDS: TICAGRELOR 90 MG TABLET PO SCH (21:16)
[2020-09-28 04:09] LABS: #Eosinphils 0.1 thou/uL (0.0-0.7); #Lymphocytes 1.9 thou/uL (1.20-3.40); #Monocytes 0.8 thou/uL (0.11-0.59); %Basophils 0.5 % (0.0-1.0); %Eosinophils 1.4 % (0.0-10.0); %Lymphocytes 18.8 % (21.0-51.0); %Monocytes 8.5 % (0.0-10.0); %Neutrophils 70.8 % (42.0-75.0); Hemoglobin 15.2 g/dL (14.0-18.0); Mean Corpuscular HGB CONC 32.5 g/dL (32.0-36.0); Mean Corpuscular Hemoglobin 28.8 pg (27.0-31.0); Mean Corpuscular Volume 88.6 fL (78.0-98.0); Mean Platelet Volume 7.9 fL (7.4-10.4); Platelet Count 345 thou/uL (130-400); RBC Distribution Width 14.7 % (11.5-14.5); Red Blood Cell (RBC) Count 5.29 mill/uL (4.70-6.10); White Blood Cell (WBC) Count 9.9 thou/uL (4.8-10.8)
[2020-09-28 04:32] LABS: ALT (SGPT) 86 U/L (8-55); AST (SGOT) 24 U/L (5-34); Albumin 3.9 g/dL (3.5-5.0); Alkaline Phosphatase 116 U/L (40-110); Anion Gap 16 mmol/L (10-20); BUN (Urea Nitrogen) 15 mg/dL (8.9-20.6); Bilirubin, Total 0.8 mg/dL (0.2-1.2); Calc. Creatinine Clearance 131 mL/min (70-130); Calcium 9.9 mg/dL (7.8-10.44); Carbon Dioxide 26 mmol/L (22-29); Chloride 101 mmol/L (98-107); Estimated GFR-MDRD 56; Globulin 3.7 g/dL (2.4-3.5); Glucose 116 mg/dL (70-105); Potassium 3.6 mmol/L (3.5-5.1); Protein, Total 7.6 g/dL (6.0-8.3); Sodium 139 mmol/L (136-145)
[2020-09-28] MEDS ORDERED: Furosemide 40 MG TAB PO SCH (07:30)
[2020-09-28 07:53] VITALS: TEMP 98.2
[2020-09-28] MEDS ORDERED: hydrALAZINE 25 MG TAB PO SCH ×2 (09:15→15:00)
[2020-09-28] MEDS: Famotidine 20 MG TAB PO SCH (09:30)
[2020-09-28] MEDS: Aspirin Chewable 81 MG TAB PO SCH (09:30)
[2020-09-28] MEDS: Sacubitril 49 MG/Valsartan 51 MG TABLET PO SCH (09:30)
[2020-09-28] MEDS: Carvedilol 6.25 MG TAB PO SCH (09:30)
[2020-09-28] MEDS: TICAGRELOR 90 MG TABLET PO SCH (09:30)
[2020-09-28 09:55] VITALS: BP 136/92
--- NOTE | 2020-09-28 10:54 | PDOC.DS.DS ---
Provider - Provider Date of Admission: 09/24/20 11:43 Date of Discharge: 09/28/20 Admitting Provider: Lincoln Agustin MD Consultations: Cardiology (Dr. Scott), Nephrology (Dr. Livingston) Primary Care Physician: Sommer Pruitt NP Course - Hospital Course Hospital Course: Discharge diagnosis: 1. Non-ST elevation myocardial infarction 2. Chronic kidney disease stage III 3. Moderate nonischemic cardiomyopathy 4. Dyslipidemia 5. Abnormal liver function tests secondary to hepatic congestion 6. Acute on chronic systolic congestive heart failure 7. Single-vessel coronary artery disease status post PCI with drug-eluting stent to mid RCA Hospital course: Patient is a pleasant 50-year-old gentleman who was admitted to the hospital on September 24, 2020 for congestive heart failure and elevated troponin. He also had chronic kidney disease. He was seen by nephrology and cardiology services. 2D echocardiogram showed left ventricle ejection fraction of 30 to 35%, mildly dilated left atrium, moderate mitral regurgitation, mild tricuspid regurgitation and moderate pulmonic regurgitation. He went on to have cardiac catheterization. He was found to have one-vessel CAD with RCA. He underwent successful PCI with drug-eluting stent to the mid right coronary artery. He needs to be on Brilinta for 1 year. He was also fitted with a LifeV est prior to discharge. Many thanks for allowing me to participate in your patient's care. Please feel free to contact me with any questions or concerns. - Labs Lab Results: 09/28/20 03:40 09/28/20 03:40 Abnormal Lab Results - Last 48 hrs 09/26/20 16:30: Urine Creatinine 58.18 L 09/27/20 04:16: RBC 4.50 L, Hgb 12.8 L, Hct 38.8 L, Neutrophils # 6.6 H, Monocytes # 1.0 H 09/27/20 04:16: ALT 106 H 09/27/20 04:16: B-Natriuretic Peptide 907.6 H 09/28/20 03:40: Creatinine 1.39 H, ALT 86 H, Alkaline Phosphatase 116 H, Globulin 3.7 H, Albumin/Globulin Ratio 1.1 L 09/28/20 03:40: RDW 14.7 H, Lymphocytes % 18.8 L, Neutrophils # 7.0 H, Monocytes # 0.8 H - Physical Exam Vitals: Vital Signs (12 hours) Temp Pulse Pulse Pulse Resp BP BP 09/28/20 09:01 86 89 136/92 H 124/90 09/28/20 07:45 98.2 F 88 18 09/28/20 04:30 98.8 F 92 16 BP Pulse Ox 09/28/20 09:01 09/28/20 07:45 150/102 H 96 09/28/20 04:30 168/108 H 95 Weight Weight 287 lb 8 oz Physical Exam: The patient was seen and examined on the day of discharge. Patient denies chest pain or shortness of breath. Vital signs are stable. S1 and S2 are heard. Lungs are clear to auscultation bilaterally. Problem - Problem (1) Acute on chronic systolic congestive heart failure, NYHA class 3 Code(s): I50.23 - ACUTE ON CHRONIC SYSTOLIC (CONGESTIVE) HEART FAILURE Status: Acute (2) TRAMAINE (acute kidney injury) Code(s): N17.9 - ACUTE KIDNEY FAILURE, UNSPECIFIED Status: Acute (3) Elevated troponin Code(s): R77.8 - OTHER SPECIFIED ABNORMALITIES OF PLASMA PROTEINS Status: Acute (4) HTN (hypertension) Code(s): I10 - ESSENTIAL (PRIMARY) HYPERTENSION Status: Chronic (5) Coronary artery disease Code(s): I25.10 - ATHSCL HEART DISEASE OF [place] CORONARY ARTERY W/O ANG PCTRS Status: Chronic (6) Ischemic cardiomyopathy Code(s): I25.5 - ISCHEMIC CARDIOMYOPATHY Status: Chronic - Time spent with Patient (mins): 25 Plan - Discharge Medications Prescriptions: Ticagrelor [Brilinta] 90 mg PO BID #60 tab Carvedilol [Coreg] 12.5 mg PO BID #60 tab Sacubitril/Valsartan 49/51 [Entresto 49 mg-51 mg Tablet] 1 each PO BID #60 tablet hydrALAZINE HCl [Hydralazine HCl] 50 mg PO TID #90 tablet Furosemide [Lasix] 40 mg PO DAILY #30 tab Atorvastatin Calcium [Lipitor] 40 mg PO HS #30 tab Home Medications: Medication Instructions Recorded Confirmed Type Aspirin [Ecotrin Low Strength] 81 mg PO DAILY 09/24/20 09/24/20 History Atorvastatin Calcium [Lipitor] 40 mg PO HS #30 tab 09/28/20 Rx Carvedilol [Coreg] 12.5 mg PO BID #60 tab 09/28/20 Rx Furosemide [Lasix] 40 mg PO DAILY #30 tab 09/28/20 Rx Sacubitril/Valsartan 49/51 1 each PO BID #60 tablet 09/28/20 Rx [Entresto 49 mg-51 mg Tablet] Ticagrelor [Brilinta] 90 mg PO BID #60 tab 09/28/20 Rx hydrALAZINE HCl [Hydralazine HCl] 50 mg PO TID #90 tablet 09/28/20 Rx Allergies: Penicillins Allergy (Verified 09/24/20 13:55) - Discharge Instructions Activity:: Activity as Tolerated Nourishment:: Heart Healthy Diet, No Added Salt Diet - Follow up Plan Referrals: Cardiac Rehab - [place] [Outside] - 7 Days (Your doctor has ordered outpatient cardiac rehab for you to begin within 1-2 weeks after you go home from the hospital. The location nearest to you is the [facility]. The front office in [place] will call you in 3-5 days to get you scheduled for your evaluation. If you do not receive a call, please reach out to them at [phone] and request an appointment. Should you have any trouble or need assistance, please call the cardiac rehab main line in [place] at [phone]) Sommer Pruitt NP [Primary Care Provider] - 10/03/20 10:00 am (This appt day and time is for [facility] with Dr Reilly. Clinic number is [phone] ) Jama Scott MD [Active] - 14 Days (Please call to schedule a follow up appointment with Dr. Scott) America Livingston MD [Active] - 14 Days Disposition: HOME Quality - Care Measures CORE MEASURES:: AMI, HF - Stroke/TIA Did you prescribe antithrombotic therapy?: Yes Specify reason for no DC anticoagulant: Treatment not indicated Did you prescribe a statin medication?: Yes
--- NOTE | 2020-09-29 07:04 | EKG ---
Test Reason : POST STENT-RCA Blood Pressure : / mmHG Vent. Rate : 079 BPM Atrial Rate : 079 BPM P-R Int : 146 ms QRS Dur : 102 ms QT Int : 426 ms P-R-T Axes : 060 045 162 degrees QTc Int : 488 ms Normal sinus rhythm Biatrial enlargement Prolonged QT Abnormal ECG Confirmed by AMITA HACKETT MD ([id number]) on 09/29/2020 7:04:42 AM Referred By: ARUN Confirmed By:AMITA HACKETT MD
--- NOTE | 2020-09-29 07:42 | PDOC.NEPPN ---
- Subjective Encounter Date: 09/28/20 Subjective: Seen in follow up for CKD with possible TRAMAINE. Feeling better. - Objective Vital Signs & Weight: Weight Weight 287 lb 8 oz I&O: 09/28/20 09/29/20 09/30/20 06:59 06:59 06:59 Intake Total 2090 Output Total 6800 Balance -4710 Result Diagrams: 09/28/20 03:40 09/28/20 03:40 - Exam General Appearance: awake alert Eye: anicteric sclera ENT: normocephalic atraumatic, moist mucosa Neck: supple Respiratory: no wheezes, no rales, no ronchi, normal chest expansion Cardiovascular: RRR Gastrointestinal: soft, non-tender, non-distended, normal bowel sounds Gastrointestinal - other findings: obese Extremities: 1+ LE edema Neurological: CN's grossly intact, no focal deficits PSYCH: A&O x 3 Nephrology Results - Labs Result Diagrams: 09/28/20 03:40 09/28/20 03:40 Lab results: WBC 9.9 thou/uL (4.8-10.8) 09/28/20 03:40 Hgb 15.2 g/dL (14.0-18.0) 09/28/20 03:40 Hct 46.9 % (42.0-52.0) 09/28/20 03:40 MCV 88.6 fL (78.0-98.0) 09/28/20 03:40 Plt Count 345 thou/uL (130-400) 09/28/20 03:40 Neutrophils % 70.8 % (42.0-75.0) 09/28/20 03:40 Sodium 139 mmol/L (136-145) 09/28/20 03:40 Potassium 3.6 mmol/L (3.5-5.1) 09/28/20 03:40 Chloride 101 mmol/L (98-107) 09/28/20 03:40 Carbon Dioxide 26 mmol/L (22-29) 09/28/20 03:40 BUN 15 mg/dL (8.9-20.6) 09/28/20 03:40 Creatinine 1.39 mg/dL (0.7-1.3) H 09/28/20 03:40 Glucose 116 mg/dL (70-105) H 09/28/20 03:40 Calcium 9.9 mg/dL (7.8-10.44) 09/28/20 03:40 Total Bilirubin 0.8 mg/dL (0.2-1.2) 09/28/20 03:40 AST 24 U/L (5-34) 09/28/20 03:40 ALT 86 U/L (8-55) H 09/28/20 03:40 Alkaline Phosphatase 116 U/L (40-110) H 09/28/20 03:40 Troponin I 0.034 ng/mL (< 0.028) H 09/24/20 18:26 B-Natriuretic Peptide 907.6 pg/mL (0-100) H 09/27/20 04:16 Serum Total Protein 7.6 g/dL (6.0-8.3) 09/28/20 03:40 Albumin 3.9 g/dL (3.5-5.0) 09/28/20 03:40 Urine Ketones Negative mg/dL (Negative) 09/26/20 16:30 Urine Blood Negative (Negative) 09/26/20 16:30 Urine Nitrite Negative (Negative) 09/26/20 16:30 Ur Leukocyte Esterase Negative Maria Del Rosario/uL (Negative) 09/26/20 16:30 Urine RBC 0-3 HPF (0-3) 09/26/20 16:30 Urine WBC 0-3 HPF (0-3) 09/26/20 16:30 Ur Squamous Epith Cells None Seen HPF (0-3) 09/26/20 16:30 Urine Bacteria None Seen HPF (None Seen) 09/26/20 16:30 Sodium 139 mmol/L (136-145) 09/28/20 03:40 Potassium 3.6 mmol/L (3.5-5.1) 09/28/20 03:40 Chloride 101 mmol/L (98-107) 09/28/20 03:40 Carbon Dioxide 26 mmol/L (22-29) 09/28/20 03:40 Anion Gap 16 mmol/L (10-20) 09/28/20 03:40 BUN 15 mg/dL (8.9-20.6) 09/28/20 03:40 Creatinine 1.39 mg/dL (0.7-1.3) H 09/28/20 03:40 Glucose 116 mg/dL (70-105) H 09/28/20 03:40 Calcium 9.9 mg/dL (7.8-10.44) 09/28/20 03:40 Albumin 3.9 g/dL (3.5-5.0) 09/28/20 03:40 Nephrology AP PN - Plan CKD 3 with possible TRAMAINE. Baseline creat is unknown. ? cardiorenal syndrome given new onset CHF. Had contrast study 09/27/2020 HTN: Control is better TONO on CPAP Acute systolic and diastolic heart failure CAD s/p FRANKO to RCA Ischemic cardiomyopathy. Plan Monitor renal function closely in view or recent IV contrast study and commencement of entresto Monitor BP and adjust antihypertensives. If discharged, repeat renal function on 10/02/2020. follow up in about 2 weeks.
== END 2020-09-28 11:19 | disposition home or self-care (01) | DRG 246 ==
LOC: OBSVTOIN 11:43 → 2NO 11:43
PROVIDERS: ADMIT Internal Medicine; ATTEND Internal Medicine
PROC: 4A023N7 Measurement of Cardiac Sampling and Pressure, Left Heart, Percutaneous Approach (ICD-10-PCS; principal; 2020-09-24)
PROC: 027034Z Dilation of Coronary Artery, One Artery with Drug-eluting Intraluminal Device, Percutaneous Approach (ICD-10-PCS; 2020-09-24)
PROC: B2111ZZ Fluoroscopy of Multiple Coronary Arteries using Low Osmolar Contrast (ICD-10-PCS; 2020-09-24)
PROC: B2151ZZ Fluoroscopy of Left Heart using Low Osmolar Contrast (ICD-10-PCS; 2020-09-24)
PROC: 4A033BC Measurement of Arterial Pressure, Coronary, Percutaneous Approach (ICD-10-PCS; 2020-09-24)
PROC: B4171ZZ Fluoroscopy of Left Renal Artery using Low Osmolar Contrast (ICD-10-PCS; 2020-09-24)
DX: I13.0 Hypertensive heart and chronic kidney disease with heart failure and stage 1 through stage 4 chronic kidney disease, or unspecified chronic kidney disease (principal); I50.43 Acute on chronic combined systolic (congestive) and diastolic (congestive) heart failure; Z20.828 Contact with and (suspected) exposure to other viral communicable diseases; I21.4 Non-ST elevation (NSTEMI) myocardial infarction; N17.9 Acute kidney failure, unspecified; F17.210 Nicotine dependence, cigarettes, uncomplicated; E11.22 Type 2 diabetes mellitus with diabetic chronic kidney disease; G47.33 Obstructive sleep apnea (adult) (pediatric); I25.5 Ischemic cardiomyopathy; N18.30 Chronic kidney disease, stage 3 unspecified; E66.9 Obesity, unspecified; I25.10 Atherosclerotic heart disease of native coronary artery without angina pectoris; I08.1 Rheumatic disorders of both mitral and tricuspid valves; Z79.82 Long term (current) use of aspirin; Z79.899 Other long term (current) drug therapy; Z68.36 Body mass index [BMI] 36.0-36.9, adult; Z91.14 Patient's other noncompliance with medication regimen
CPT/HCPCS: 36415; 80053; 80061; 81001; 82570; 83036; 83880; 84156; 84443; 84540; 85025; 85347; 87635; 92928; 93005; 93010; 93306; 93458; 93798; 94660; 96374; 99152; 99153; C1874; C9600; G0378; J0132; J0360; J1644; J1940; J2250; J3010; Q9967; U0003